=== PATIENT | female | born 1955 | race Caucasian/White ===

== ENCOUNTER 2016-11-02 12:18 | Inpatient (IN) | payer BC ==
[~2016-11-02] VITALS: Ht 160 cm; Wt 101.4 kg
--- NOTE | 2016-11-02 12:42 | EKG ---
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
[2016-11-02 13:06] LABS: BASO # 0.1 x10^3/uL (0.0-0.2); BASO % 2 % (0-3); EOS % 4 % (0-3); HEMATOCRIT 39.5 % (36.0-47.0); LYMPH # 1.7 x10^3/uL (1.0-4.8); LYMPH % 20 % (24-48); MEAN CORPUSCULAR HEMOGLOBIN 24 pg (25-35); MEAN CORPUSCULAR HGB CONC 33 g/dL (31-37); MEAN CORPUSCULAR VOLUME 73 fL (79-100); MONO % 6 % (0-9); NEUT % 68 % (31-73); PLATELET COUNT 299 x10^3/uL (140-400); RED CELL DISTRIBUTION WIDTH 15.8 % (11.5-14.5); WHITE BLOOD COUNT 8.5 x10^3/uL (4.0-11.0)
[2016-11-02 13:12] LABS: CALCIUM 9.6 mg/dL (8.5-10.1); CREATININE 0.9 mg/dL (0.6-1.0); GFR 63.2; POTASSIUM 3.8 mmol/L (3.5-5.1)
[2016-11-02] MEDS ORDERED: ONDANSETRON PF 4 MG/2 ML VIAL. IV ONE (13:15)
[2016-11-02] MEDS ORDERED: fentaNYL PF VIAL 100 MCG/2 ML VIAL IV ONE (13:15)
[2016-11-02 13:18] LABS: ALBUMIN 3.6 g/dL (3.4-5.0); ALBUMIN/GLOBULIN RATIO 0.8 (1.0-1.7); TOTAL BILIRUBIN 0.3 mg/dL (0.2-1.0); TOTAL PROTEIN 7.9 g/dL (6.4-8.2)
[2016-11-02 13:39] LABS: BILIRUBIN,URINE NEGATIVE (NEG); GLUCOSE,URINE NEGATIVE (NEG); NITRITE,URINE POSITIVE (NEG); PROTEIN,URINE NEGATIVE (NEG-TRACE); UROBILINOGEN,URINE 0.2 mg/dL (0.2 mg/dL)
[2016-11-02 13:52] LABS: BACTERIA,URINE MANY /HPF (0-FEW); RBC,URINE 0 /HPF (0-2); SQUAMOUS EPITHELIAL CELL,UR FEW /LPF; WBC,URINE 20-40 /HPF (0-4)
--- NOTE | 2016-11-02 16:24 | RAD ---
Indication right upper quadrant abdominal pain. Grayscale imaging was performed. Examination was targeted to the right upper quadrant. A focal mass lesion is not seen in the visualized liver. There is increased attenuation of the ultrasound beam by the liver compatible with fatty infiltration. The gallbladder appears unremarkable. The common bile duct diameter of approximately 3 mm is normal. The right kidney appears unremarkable. The pancreas is poorly visualized and largely obscured by gas. IMPRESSION: Normal gallbladder. Fatty infiltration of the liver. Midline structures largely obscured
--- NOTE | 2016-11-02 17:56 | PHYS DOC ---
Past Medical History Past Medical History: Diabetes-Type II, Fibromyalgia, GERD, Hypertension, Other Additional Past Medical Histor: FATTY TUMORS Past Surgical History: Hysterectomy, Other Additional Past Surgical Histo: FATTY TUMOR REMOVAL Alcohol Use: None Drug Use: None Adult General Chief Complaint Chief Complaint: GI PROBLEM HPI HPI Patient is a 61 year old female who presents with epigastric pain dating to right shoulder and right lateral neck. Abdominal pain is now resolved. Patient describes back pain as sharp. It is not reproducible worse with position change , movement or deep breathing. Pain is described as moderate. She denies recent fall or strain injury. Denies headache, blurred vision, nausea, vomiting and shortness of breath. Pain is nonexertional. Denies increased leg pain or swelling. No history of DVT or PE. No prior abdominal surgeries. No other acute symptoms or complaints. Review of Systems Review of Systems Review symptoms as per history of present illness. All other review symptoms are negative. Current Medications Current Medications Current Medications Medications (Trade) Dose Ordered Sig/Janny Start Time Stop Time Status Last Admin Dose Admin Fentanyl Citrate (Fentanyl 2ml Vial) 50 mcg 1X ONCE 11/02/16 13:15 11/02/16 13:16 DC Iohexol (Omnipaque 300 Mg/ml) 75 ml 1X ONCE 11/02/16 18:00 11/02/16 18:01 UNV Ondansetron HCl (Zofran) 4 mg 1X ONCE 11/02/16 13:15 11/02/16 13:16 DC Allergies Allergies Allergies Coded Allergies Type Severity Reaction Last Updated Verified Sulfa (Sulfonamide Antibiotics) Allergy Intermediate MOUTH SORES 11/02/16 Yes Physical Exam Physical Exam Constitutional: Well developed, well nourished, no acute distress, non-toxic appearance. [] HENT: Normocephalic, atraumatic, bilateral external ears normal, oropharynx moist, no oral exudates, nose normal. [] Eyes: PERRLA, EOMI, conjunctiva normal, no discharge. [] Neck: Normal range of motion, no tenderness, supple, no stridor. [] Cardiovascular:Heart rate regular rhythm, no murmur [] Lungs & Thorax: Bilateral breath sounds clear to auscultation negative Homans signs.[] Abdomen: Bowel sounds normal, soft, no gastric tenderness.. [] Skin: Warm, dry, no erythema, no rash. [] Back: No tenderness, no CVA tenderness. [] Extremities: No tenderness, no cyanosis, no clubbing, ROM intact, no edema. [] Neurologic: Alert and oriented X 3, normal motor function, normal sensory function, no focal deficits noted. [] Psychologic: Affect normal, judgement normal, mood normal. [] Current Patient Data Vital Signs Vital Signs Date Time Temp Pulse Resp B/P (MAP) Pulse Ox O2 Delivery O2 Flow Rate FiO2 11/02/16 16:18 60 18 133/63 (86) 97 Room Air 11/02/16 12:20 98.0 98.0 Lab Values Laboratory Tests Test 11/02/16 12:54 11/02/16 13:35 White Blood Count 8.5 x10^3/uL (4.0-11.0) Red Blood Count 5.40 x10^6/uL (3.50-5.40) Hemoglobin 13.0 g/dL (12.0-15.5) Hematocrit 39.5 % (36.0-47.0) Mean Corpuscular Volume 73 fL (79-100) L Mean Corpuscular Hemoglobin 24 pg (25-35) L Mean Corpuscular Hemoglobin Concent 33 g/dL (31-37) Red Cell Distribution Width 15.8 % (11.5-14.5) H Platelet Count 299 x10^3/uL (140-400) Neutrophils (%) (Auto) 68 % (31-73) Lymphocytes (%) (Auto) 20 % (24-48) L Monocytes (%) (Auto) 6 % (0-9) Eosinophils (%) (Auto) 4 % (0-3) H Basophils (%) (Auto) 2 % (0-3) Neutrophils # (Auto) 5.8 x10^3uL (1.8-7.7) Lymphocytes # (Auto) 1.7 x10^3/uL (1.0-4.8) Monocytes # (Auto) 0.5 x10^3/uL (0.0-1.1) Eosinophils # (Auto) 0.4 x10^3/uL (0.0-0.7) Basophils # (Auto) 0.1 x10^3/uL (0.0-0.2) D-Dimer (Padmini) 0.53 ug/mlFEU (0.00-0.50) H Sodium Level 140 mmol/L (136-145) Potassium Level 3.8 mmol/L (3.5-5.1) Chloride Level 102 mmol/L (98-107) Carbon Dioxide Level 30 mmol/L (21-32) Anion Gap 8 (6-14) Blood Urea Nitrogen 14 mg/dL (7-20) Creatinine 0.9 mg/dL (0.6-1.0) Estimated GFR (Cockcroft-Gault) 63.2 BUN/Creatinine Ratio 16 (6-20) Glucose Level 134 mg/dL (70-99) H Calcium Level 9.6 mg/dL (8.5-10.1) Total Bilirubin 0.3 mg/dL (0.2-1.0) Aspartate Amino Transferase (AST) 17 U/L (15-37) Alanine Aminotransferase (ALT) 25 U/L (14-59) Alkaline Phosphatase 80 U/L (46-116) Troponin I Quantitative < 0.017 ng/mL (0.000-0.055) Total Protein 7.9 g/dL (6.4-8.2) Albumin 3.6 g/dL (3.4-5.0) Albumin/Globulin Ratio 0.8 (1.0-1.7) L Lipase 203 U/L (73-393) Urine Collection Type Unknown Urine Color Yellow Urine Clarity Clear Urine pH 7.0 Urine Specific [place] <=1.005 Urine Protein Negative mg/dL (NEG-TRACE) Urine Glucose (UA) Negative mg/dL (NEG) Urine Ketones (Stick) Negative mg/dL (NEG) Urine Blood Negative (NEG) Urine Nitrite Positive (NEG) Urine Bilirubin Negative (NEG) Urine Urobilinogen Dipstick 0.2 mg/dL (0.2 mg/dL) Urine Leukocyte Esterase Small (NEG) Urine RBC 0 /HPF (0-2) Urine WBC 20-40 /HPF (0-4) Urine Squamous Epithelial Cells Few /LPF Urine Bacteria Many /HPF (0-FEW) Laboratory Tests 11/02/16 12:54 Laboratory Tests 11/02/16 12:54 EKG EKG [EKG: Normal sinus rhythm, room 70, no acute ST-T wave changes. QTC 413.] Radiology/Procedures Radiology/Procedures [EKG: Normal sinus rhythm, no acute ST-T wave changes.] Course & Med Decision Making Course & Med Decision Making Pertinent Labs and Imaging studies reviewed. (See chart for details) [Atypical chest pain. ED evaluation unremarkable. Pain resolved in the ED. Patient's d-dimer is nominally elevated. CT chest pending. Will admit to the hospital service for further evaluation and treatment.] Dragon Disclaimer Dragon Disclaimer This electronic medical record was generated, in whole or in part, using a voice recognition dictation system. Departure Departure Impression: Primary Impression: Chest pain Disposition: ADMITTED INPATIENT Condition: GOOD Referrals: ELIZABETH PHILIPPE (PCP) TIFFANY WETZEL DO Nov 02, 2016 17:56
[2016-11-02] MEDS ORDERED: CONTRAST GIVEN MC PRN (18:00)
[2016-11-02] MEDS ORDERED: IOHEXOL 300 MG/ML 75 ML VIAL IV ONE (18:00)
[2016-11-02] MEDS ORDERED: ONDANSETRON PF 4 MG/2 ML VIAL. IV PRN (18:00)
[2016-11-02] MEDS ORDERED: IOHEXOL 300 MG/ML 75 ML VIAL ONE (18:19)
--- NOTE | 2016-11-02 18:42 | RAD ---
Chest CTA History: Chest pain, back pain Technique: After bolus of intravenous contrast, CT imaging was performed of the chest. Multiplanar reconstruction images to include MIP reconstruction images are submitted. Exposure: One or more of the following individualized dose reduction techniques were utilized for this examination: 1. Automated exposure control 2. Adjustment of the mA and/or kV according to patient size 3. Use of iterative reconstruction technique. Contrast: 75 cc Omnipaque 300 Comparison: Chest CT December 13, 2010 Findings: [ No pulmonary embolism is identified. Thoracic aortic caliber is within limits without intraluminal flap. There are a few subcentimeter mediastinal and hilar nodes. Largest pretracheal node measures 0.9 cm short axis dimension, not considered significantly enlarged based on axial imaging criteria. There is no abnormal pericardial or pleural fluid, lobar infiltrate, pneumothorax. Major airways are patent. There is some centrilobular emphysema. Mild of linear atelectasis or fibrotic change of the lingula. There is multilevel thoracic spondylosis. Impression: 1. No pulmonary embolism is identified. 2. There is some centrilobular emphysema. Electronically signed by: Osbaldo Rose MD (11/02/2016 6:39 PM) [facility]
[2016-11-02 19:15] VITALS: BP 139/50
[2016-11-02 19:39] VITALS: BP 139/50
[2016-11-02] MEDS ORDERED: diphenhydrAMINE 50 MG/ML VIAL IVP ONE (20:30)
[2016-11-02] MEDS ORDERED: methylPREDNISolone SOD SUCC PF 40 MG/ML VIAL. IV ONE (20:30)
[2016-11-02] MEDS ORDERED: METF500T4 PO (21:12)
[2016-11-02] MEDS ORDERED: DULO60CA6 PO (21:12)
[2016-11-02] MEDS ORDERED: CLON1TAB3 PO (21:12)
[2016-11-02] MEDS ORDERED: HYDRODIURIL PO (21:12)
[2016-11-02] MEDS ORDERED: MECLAZINE PO (21:12)
[2016-11-02] MEDS ORDERED: TRAZ50TA15 PO (21:12)
[2016-11-02] MEDS ORDERED: CRESTOR20 MG PO (21:12)
[2016-11-02] MEDS ORDERED: ATEN50TA PO (21:12)
[2016-11-02] MEDS ORDERED: Hyzaar PO (21:12)
[2016-11-02] MEDS ORDERED: OMEP20CA9 PO (21:12)
--- NOTE | 2016-11-02 21:33 | PDOC1 ---
History and Physical Date of Admission Date of Admission DATE: 11/02/16 TIME: 21:32 Identification/Chief Complaint Chief Complaint chest pain to neck Problems: Source Source: Chart review, Patient History of Present Illness History of Present Illness Ms. Davis, is a 61 admit with acute epigastric pain then right chest pain to right neck, to right ear. 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) GI: GERD Heme/Onc: No pertinent hx Hepatobiliary: No pertinent hx Musculoskeletal: low back pain ENT: No pertinent hx Renal/: No pertinent hx Endocrine: No pertinent hx Family History Family History: No Significant Social History Smoke: No ALCOHOL: none Drugs: None Current Medications Current Medications Current Medications Fentanyl Citrate (Fentanyl 2ml Vial) 50 mcg 1X ONCE IV ; Start 11/02/16 at 13: 15; Stop 11/02/16 at 13:16; Status DC Ondansetron HCl (Zofran) 4 mg 1X ONCE IV ; Start 11/02/16 at 13:15; Stop at 13:16; Status DC Iohexol (Omnipaque 300 Mg/ml) 75 ml 1X ONCE IV Last administered on 11/02/16t 18:12; Start 11/02/16 at 18:00; Stop 11/02/16 at 18:01; Status DC Ondansetron HCl (Zofran) 4 mg PRN Q8HRS PRN IV NAUSEA/VOMITING; Start 11/02/16 at 18:00; Stop 11/03/16 at 17:59 Info (Do NOT chart on this entry -- for MONITORING) 1 each PRN DAILY PRN MC SEE COMMENTS; Start 11/02/16 at 18:00; Stop 11/04/16 at 17:59 Iohexol (Omnipaque 300 Mg/ml) 75 ml STK-MED ONCE .ROUTE ; Start 11/02/16 at 18: 19; Stop 11/02/16 at 18:20; Status DC Methylprednisolone Sodium Succinate (SOLU-Medrol 40MG VIAL) 40 mg 1X ONCE IV Last administered on 11/02/16t 20:46; Start 11/02/16 at 20:30; Stop 11/02/16 at 20:31; Status DC Diphenhydramine HCl (Benadryl) 50 mg 1X ONCE IVP Last administered on 20:46; Start 11/02/16 at 20:30; Stop 11/02/16 at 20:31; Status DC Ceftriaxone Sodium 1 gm/ Sodium Chloride 50 ml @ 100 mls/hr Q24H IV Last administered on 11/02/16 20:46; Start 11/02/16 at 21:00 Active Scripts Active Reported [Meclazine] 25 Mg PO PRN Trazodone Hcl 50 Mg Tablet 1 Tab PO QHS PRN Metformin Hcl 500 Mg Tablet 500 Mg PO DAILY Crestor (Rosuvastatin Calcium) 20 Mg Tablet 1 Tab PO DAILY Cymbalta (Duloxetine Hcl) 60 Mg Capsule.dr 1 Cap PO DAILY Omeprazole 20 Mg Capsule.dr 1 Cap PO DAILY Atenolol 50 Mg Tablet 1 Tab PO DAILY [Hydrodiuril] 50 Mg PO DAILY Clonazepam 1 Mg Tablet 1 Tab PO QHS [Hyzaar] PO Allergies Allergies: Coded Allergies: Sulfa (Sulfonamide Antibiotics) (Verified Allergy, Intermediate, MOUTH SORES, 11/02/16) iohexol (Verified Allergy, Intermediate, Hives, 11/02/16) hives, reddened areas, itching ROS General: No: Chills, Night Sweats, Fatigue, Malaise, Appetite, Other PSYCHOLOGICAL ROS: No: Anxiety, Behavioral Disorder, Concentration difficultie , Decreased libido, Depression, Disorientation, Hallucinations, Hostility, Irritablity, Memory difficulties, Mood Swings, Obsessive thoughts, Physical abuse, Sexual abuse, Sleep disturbances, Suicidal ideation, Other Eyes: No Blurry vision, No Decreased vision, No Double vision, No Dry eyes, No Excessive tearing, No Eye Pain, No Itchy Eyes, No Loss of vision, No Photophobia , No Scotomata, No Uses contacts, No Uses glasses, No Other HEENT: No: Heacaches, Visual Changes, Hearing change, Nasal congestion, Nasal discharge, Oral lesions, Sinus pain, Sore Throat, Epistaxis, Sneezing, Snoring, Tinnitus, Vertigo, Vocal changes, Other Respiratory: No: Cough, Hemoptysis, Orthopnea, Pleuritic Pain, Shortness of breath, SOB with excertion, Sputum Changes, Stridor, Tachypnea, Wheezing, Other Cardiovascular: No Chest Pain, No Palpitations, No Orthopnea, No Paroxysmal Noc. Dyspnea, No Edema, No Lt Headedness, No Other Gastrointestinal: Yes Nausea, No Vomiting, No Abdominal Pain, No Diarrhea, No Constipation, No Melena, No Hematochezia, No Other Genitourinary: No Dysuria, No Frequency, No Incontinence, No Hematuria, No Retention, No Discharge, No Urgency, No Pain, No Flank Pain, No Other, No , No , No , No , No , No , No Musculoskeletal: Yes Muscle Pain, Yes Pain In: (chest, neck ), No Gait Disturbance, No Joint Pain, No Joint Stiffness, No Joint Swelling, No Muscular Weakness, No Swelling In:, No Other Neurological: No Behavorial Changes, No Bowel/Bladder ControlChng, No Confusion , No Dizziness, No Gait Disturbance, No Headaches, No Impaired Coord/balance, No Memory Loss, No Numbness/Tingling, No Seizures, No Speech Problems, No Tremors, No Visual Changes, No Weakness, No Other Skin: Yes Dry Skin, No Eczema, No Hair Changes, No Lumps, No Mole Changes, No Mottling, No Nail Changes, No Pruritus, No Rash, No Skin Lesion Changes, No Other, No Acne Physical Exam General: Alert, Cooperative, No acute distress HEENT: Atraumatic, PERRLA, EOMI, Mucous membr. moist/pink Lungs: Normal air movement Heart: no gallops, no murmurs Abdomen: Normal bowel sounds, Soft (obese) Rectal Exam: not examined Extremities: No cyanosis, No edema, Normal pulses Skin: No breakdown, No significant lesion Neuro: Normal gait, Normal speech, Strength at 5/5 X4 ext, Sensation intact Psych/Mental Status: Mood NL Vitals Vitals Vital Signs Date Time Temp Pulse Resp B/P (MAP) Pulse Ox O2 Delivery O2 Flow Rate FiO2 11/02/16 19:39 97.7 61 16 139/50 (79) 96 Room Air 97.7 Labs Labs Laboratory Tests Test 11/02/16 12:54 11/02/16 13:35 11/02/16 20:48 White Blood Count 8.5 x10^3/uL (4.0-11.0) Red Blood Count 5.40 x10^6/uL (3.50-5.40) Hemoglobin 13.0 g/dL (12.0-15.5) Hematocrit 39.5 % (36.0-47.0) Mean Corpuscular Volume 73 fL (79-100) Mean Corpuscular Hemoglobin 24 pg (25-35) Mean Corpuscular Hemoglobin Concent 33 g/dL (31-37) Red Cell Distribution Width 15.8 % (11.5-14.5) Platelet Count 299 x10^3/uL (140-400) Neutrophils (%) (Auto) 68 % (31-73) Lymphocytes (%) (Auto) 20 % (24-48) Monocytes (%) (Auto) 6 % (0-9) Eosinophils (%) (Auto) 4 % (0-3) Basophils (%) (Auto) 2 % (0-3) Neutrophils # (Auto) 5.8 x10^3uL (1.8-7.7) Lymphocytes # (Auto) 1.7 x10^3/uL (1.0-4.8) Monocytes # (Auto) 0.5 x10^3/uL (0.0-1.1) Eosinophils # (Auto) 0.4 x10^3/uL (0.0-0.7) Basophils # (Auto) 0.1 x10^3/uL (0.0-0.2) D-Dimer (Padmini) 0.53 ug/mlFEU (0.00-0.50) Sodium Level 140 mmol/L (136-145) Potassium Level 3.8 mmol/L (3.5-5.1) Chloride Level 102 mmol/L (98-107) Carbon Dioxide Level 30 mmol/L (21-32) Anion Gap 8 (6-14) Blood Urea Nitrogen 14 mg/dL (7-20) Creatinine 0.9 mg/dL (0.6-1.0) Estimated GFR (Cockcroft-Gault) 63.2 BUN/Creatinine Ratio 16 (6-20) Glucose Level 134 mg/dL (70-99) Calcium Level 9.6 mg/dL (8.5-10.1) Total Bilirubin 0.3 mg/dL (0.2-1.0) Aspartate Amino Transf (AST/SGOT) 17 U/L (15-37) Alanine Aminotransferase (ALT/SGPT) 25 U/L (14-59) Alkaline Phosphatase 80 U/L (46-116) Troponin I Quantitative < 0.017 ng/mL (0.000-0.055) Total Protein 7.9 g/dL (6.4-8.2) Albumin 3.6 g/dL (3.4-5.0) Albumin/Globulin Ratio 0.8 (1.0-1.7) Lipase 203 U/L (73-393) Urine Collection Type Unknown Urine Color Yellow Urine Clarity Clear Urine pH 7.0 Urine Specific [place] <=1.005 Urine Protein Negative mg/dL (NEG-TRACE) Urine Glucose (UA) Negative mg/dL (NEG) Urine Ketones (Stick) Negative mg/dL (NEG) Urine Blood Negative (NEG) Urine Nitrite Positive (NEG) Urine Bilirubin Negative (NEG) Urine Urobilinogen Dipstick 0.2 mg/dL (0.2 mg/dL) Urine Leukocyte Esterase Small (NEG) Urine RBC 0 /HPF (0-2) Urine WBC 20-40 /HPF (0-4) Urine Squamous Epithelial Cells Few /LPF Urine Bacteria Many /HPF (0-FEW) Glucose (Fingerstick) 125 mg/dL (70-99) Laboratory Tests Test 11/02/16 12:54 11/02/16 13:35 11/02/16 20:48 White Blood Count 8.5 x10^3/uL (4.0-11.0) Red Blood Count 5.40 x10^6/uL (3.50-5.40) Hemoglobin 13.0 g/dL (12.0-15.5) Hematocrit 39.5 % (36.0-47.0) Mean Corpuscular Volume 73 fL (79-100) Mean Corpuscular Hemoglobin 24 pg (25-35) Mean Corpuscular Hemoglobin Concent 33 g/dL (31-37) Red Cell Distribution Width 15.8 % (11.5-14.5) Platelet Count 299 x10^3/uL (140-400) Neutrophils (%) (Auto) 68 % (31-73) Lymphocytes (%) (Auto) 20 % (24-48) Monocytes (%) (Auto) 6 % (0-9) Eosinophils (%) (Auto) 4 % (0-3) Basophils (%) (Auto) 2 % (0-3) Neutrophils # (Auto) 5.8 x10^3uL (1.8-7.7) Lymphocytes # (Auto) 1.7 x10^3/uL (1.0-4.8) Monocytes # (Auto) 0.5 x10^3/uL (0.0-1.1) Eosinophils # (Auto) 0.4 x10^3/uL (0.0-0.7) Basophils # (Auto) 0.1 x10^3/uL (0.0-0.2) D-Dimer (Padmini) 0.53 ug/mlFEU (0.00-0.50) Sodium Level 140 mmol/L (136-145) Potassium Level 3.8 mmol/L (3.5-5.1) Chloride Level 102 mmol/L (98-107) Carbon Dioxide Level 30 mmol/L (21-32) Anion Gap 8 (6-14) Blood Urea Nitrogen 14 mg/dL (7-20) Creatinine 0.9 mg/dL (0.6-1.0) Estimated GFR (Cockcroft-Gault) 63.2 BUN/Creatinine Ratio 16 (6-20) Glucose Level 134 mg/dL (70-99) Calcium Level 9.6 mg/dL (8.5-10.1) Total Bilirubin 0.3 mg/dL (0.2-1.0) Aspartate Amino Transf (AST/SGOT) 17 U/L (15-37) Alanine Aminotransferase (ALT/SGPT) 25 U/L (14-59) Alkaline Phosphatase 80 U/L (46-116) Troponin I Quantitative < 0.017 ng/mL (0.000-0.055) Total Protein 7.9 g/dL (6.4-8.2) Albumin 3.6 g/dL (3.4-5.0) Albumin/Globulin Ratio 0.8 (1.0-1.7) Lipase 203 U/L (73-393) Urine Collection Type Unknown Urine Color Yellow Urine Clarity Clear Urine pH 7.0 Urine Specific [place] <=1.005 Urine Protein Negative mg/dL (NEG-TRACE) Urine Glucose (UA) Negative mg/dL (NEG) Urine Ketones (Stick) Negative mg/dL (NEG) Urine Blood Negative (NEG) Urine Nitrite Positive (NEG) Urine Bilirubin Negative (NEG) Urine Urobilinogen Dipstick 0.2 mg/dL (0.2 mg/dL) Urine Leukocyte Esterase Small (NEG) Urine RBC 0 /HPF (0-2) Urine WBC 20-40 /HPF (0-4) Urine Squamous Epithelial Cells Few /LPF Urine Bacteria Many /HPF (0-FEW) Glucose (Fingerstick) 125 mg/dL (70-99) VTE Prophylaxis Ordered VTE Prophylaxis Devices: No VTE Pharmacological Prophylaxi: Yes Assessment/Plan Assessment/Plan chest pain, angina, pain from chest to right neck to right ear Hx GERD with chest pain, cont PPI obesity, BMI 39 Dm2, tobaccoism microcytosis without anemia, check for iron def. rash, poss contrast allergy, solumedrol and benadryl given admit for r/o ACS NICHELLE BRADFORD MD Nov 02, 2016 21:33
[2016-11-02] MEDS ORDERED: traZODone 50 MG TABLET. PO PRN (21:45)
[2016-11-02] MEDS: clonazePAM 1 MG TABLET PO SCH (22:00)
[2016-11-02 23:02] VITALS: BP 123/53
[2016-11-03 02:57] VITALS: BP 132/65
[2016-11-03 05:30] LABS: BASO # 0.1 x10^3/uL (0.0-0.2); BASO % 1 % (0-3); EOS % 2 % (0-3); HEMATOCRIT 38.3 % (36.0-47.0); HEMOGLOBIN 12.5 g/dL (12.0-15.5); LYMPH % 19 % (24-48); MEAN CORPUSCULAR HEMOGLOBIN 24 pg (25-35); MEAN CORPUSCULAR HGB CONC 33 g/dL (31-37); MEAN CORPUSCULAR VOLUME 74 fL (79-100); MONO % 5 % (0-9); NEUT % 72 % (31-73); PLATELET COUNT 288 x10^3/uL (140-400); RED BLOOD COUNT 5.18 x10^6/uL (3.50-5.40); RED CELL DISTRIBUTION WIDTH 16.2 % (11.5-14.5); WHITE BLOOD COUNT 10.5 x10^3/uL (4.0-11.0)
[2016-11-03 07:00] VITALS: BP 139/47
[2016-11-03 08:29] LABS: % SAT IRON 7 % (15-34); IRON,SERUM 27 ug/dL (50-170)
[2016-11-03] MEDS: hydroCHLOROthiazide 25 MG TABLET PO SCH ×2 (09:00→11:53)
[2016-11-03] MEDS ORDERED: REGADENOSON 0.4 MG/5 ML DISP.SYRIN. IV ONE ×2 (10:45→10:48)
[2016-11-03] MEDS: DULoxetine HCL 30 MG CAPSULE.DR PO SCH (11:51)
[2016-11-03] MEDS: PANTOPRAZOLE 40 MG TABLET.DR. PO SCH (11:51)
[2016-11-03] MEDS: ATENOLOL 50 MG TABLET. PO SCH (11:54)
[2016-11-03 12:10] LABS: NEG OBC FOB NEG; POS OBC FOB POS
[2016-11-03] MEDS ORDERED: DEXTROSE 50% 25 GM / 50ML DISP.SYRIN. IV PRN (12:30)
[2016-11-03] MEDS ORDERED: FERR-26 PO (13:20)
[2016-11-03] MEDS ORDERED: POLY17PO29 PO (13:20)
[2016-11-03] MEDS ORDERED: CIPR250T30 PO (13:21)
[2016-11-03] MEDS: LOSARTAN POTASSIUM 50 MG TABLET. PO SCH (13:32)
[2016-11-03] MEDS: hydroCHLOROthiazide 12.5 MG CAPSULE PO SCH (13:33)
[2016-11-03 15:00] VITALS: BP 133/58
--- NOTE | 2016-11-03 16:30 | PDOC2 ---
CONSULT Date of Consult Date of Consult DATE: 11/03/16 TIME: 16:26 Reason for Consult Reason for Consult: Chest pain Referring Physician Referring Physician: Dr. Sauceda Identification/Chief Complaint Chief Complaint Chest pain and epigastric pain Problems: History of Present Illness Reason for Visit: His patient is a very pleasant 61-year-old lady that is supple for her ideal body weight and has a known history of hypertension and a family history of coronary artery disease. The patient developed some epigastric pain that gradually localized more in to the chest radiating to the neck. This was very severe an 8 out of 10 and took some time to be relieved. Due to this the patient was brought to the emergency room where she was seen and evaluated and he was decided to admit her for further workup and treatment. At the time that I saw her the patient was resting comfortably and denies having any chest pains. So far the patient's troponins have been negative. 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) GI: GERD Heme/Onc: No pertinent hx Hepatobiliary: No pertinent hx Musculoskeletal: low back pain ENT: No pertinent hx Renal/: No pertinent hx Endocrine: No pertinent hx Family History Family History: No Significant Social History No ALCOHOL: none Drugs: None Current Medications Current Medications Current Medications Fentanyl Citrate (Fentanyl 2ml Vial) 50 mcg 1X ONCE IV ; Start 11/02/16 at 13: 15; Stop 11/02/16 at 13:16; Status DC Ondansetron HCl (Zofran) 4 mg 1X ONCE IV ; Start 11/02/16 at 13:15; Stop at 13:16; Status DC Iohexol (Omnipaque 300 Mg/ml) 75 ml 1X ONCE IV Last administered on 11/02/16t 18:12; Start 11/02/16 at 18:00; Stop 11/02/16 at 18:01; Status DC Ondansetron HCl (Zofran) 4 mg PRN Q8HRS PRN IV NAUSEA/VOMITING; Start 11/02/16 at 18:00; Stop 11/03/16 at 17:59 Info (Do NOT chart on this entry -- for MONITORING) 1 each PRN DAILY PRN MC SEE COMMENTS; Start 11/02/16 at 18:00; Stop 11/04/16 at 17:59 Iohexol (Omnipaque 300 Mg/ml) 75 ml STK-MED ONCE .ROUTE ; Start 11/02/16 at 18: 19; Stop 11/02/16 at 18:20; Status DC Methylprednisolone Sodium Succinate (SOLU-Medrol 40MG VIAL) 40 mg 1X ONCE IV Last administered on 11/02/16 20:46; Start 11/02/16 at 20:30; Stop 11/02/16 at 20:31; Status DC Diphenhydramine HCl (Benadryl) 50 mg 1X ONCE IVP Last administered on 20:46; Start 11/02/16 at 20:30; Stop 11/02/16 at 20:31; Status DC Ceftriaxone Sodium 1 gm/ Sodium Chloride 50 ml @ 100 mls/hr Q24H IV Last administered on 11/02/16 20:46; Start 11/02/16 at 21:00 Atenolol (Tenormin) 50 mg DAILY PO Last administered on 11/03/16 11:54; Start 11/03/16 at 09:00 Clonazepam (KlonoPIN) 1 mg QHS PO ; Start 11/02/16 at 22:00 Metformin HCl (Glucophage) 500 mg DAILY08 PO ; Start 11/05/16 at 08:00; Stop at 08:00; Status DC Trazodone HCl (Desyrel) 50 mg PRN QHS PRN PO INSOMNIA; Start 11/02/16 at 21:45 Duloxetine HCl (Cymbalta) 60 mg DAILY PO Last administered on 11/03/16 11:51; Start 11/03/16 at 09:00 Pantoprazole Sodium (Protonix) 40 mg DAILYAC PO Last administered on 11/03/16 11:51; Start 11/03/16 at 07:30 Atorvastatin Calcium (Lipitor) 80 mg HS PO ; Start 11/03/16 at 21:00 Hydrochlorothiazide (Hydrodiuril) 50 mg DAILY PO ; Start 11/03/16 at 09:00; Stop 11/03/16 at 12:20; Status DC Metformin HCl (Glucophage) 500 mg BIDWMEALS PO ; Start 11/05/16 at 08:00 Regadenoson (Lexiscan) 0.4 mg 1X ONCE IV Last administered on 11/03/16 11:09 ; Start 11/03/16 at 10:45; Stop 11/03/16 at 10:46; Status DC Regadenoson (Lexiscan) 0.4 mg STK-MED ONCE IV ; Start 11/03/16 at 10:48; Stop at 10:49; Status DC Losartan Potassium (Cozaar) 50 mg DAILY PO Last administered on 11/03/16 13:32 ; Start 11/03/16 at 13:00 Hydrochlorothiazide (Microzide) 12.5 mg DAILY PO Last administered on 13:33; Start 11/03/16 at 13:00 Insulin Aspart (NovoLOG) 0-5 UNITS TIDWMEALS SQ ; Start 11/03/16 at 17:00 Dextrose (Dextrose 50%-Water Syringe) 12.5 gm PRN Q15MIN PRN IV SEE COMMENTS; Start 11/03/16 at 12:30 Active Scripts Active Reported [Meclazine] 25 Mg PO PRN Trazodone Hcl 50 Mg Tablet 1 Tab PO QHS PRN Metformin Hcl 500 Mg Tablet 500 Mg PO BID Crestor (Rosuvastatin Calcium) 20 Mg Tablet 1 Tab PO DAILY Cymbalta (Duloxetine Hcl) 60 Mg Capsule.dr 1 Cap PO DAILY Omeprazole 20 Mg Capsule.dr 1 Cap PO DAILY Atenolol 50 Mg Tablet 1 Tab PO DAILY Clonazepam 1 Mg Tablet 1 Tab PO QHS [Hyzaar] 50/12.5 1 Tab PO DAILY Allergies Allergies: Coded Allergies: Sulfa (Sulfonamide Antibiotics) (Verified Allergy, Intermediate, MOUTH SORES, 11/02/16) iohexol (Verified Allergy, Intermediate, Hives, 11/02/16) hives, reddened areas, itching Physical Exam General: Alert, Oriented X3, Cooperative HEENT: Atraumatic, PERRLA Lungs: Clear to auscultation Heart: Regular rate, Normal S1, Normal S2, Other (tachycardic rate 100, no chest wall tenderness) Abdomen: Normal bowel sounds, Soft Extremities: No edema Vitals VITALS Vital Signs Date Time Temp Pulse Resp B/P (MAP) Pulse Ox O2 Delivery O2 Flow Rate FiO2 11/03/16 15:00 97.9 92 16 133/58 (83) 95 Room Air 97.9 Labs Labs Laboratory Tests Test 11/02/16 12:54 11/02/16 13:35 11/02/16 20:48 11/02/16 23:30 White Blood Count 8.5 x10^3/uL (4.0-11.0) Red Blood Count 5.40 x10^6/uL (3.50-5.40) Hemoglobin 13.0 g/dL (12.0-15.5) Hematocrit 39.5 % (36.0-47.0) Mean Corpuscular Volume 73 fL (79-100) Mean Corpuscular Hemoglobin 24 pg (25-35) Mean Corpuscular Hemoglobin Concent 33 g/dL (31-37) Red Cell Distribution Width 15.8 % (11.5-14.5) Platelet Count 299 x10^3/uL (140-400) Neutrophils (%) (Auto) 68 % (31-73) Lymphocytes (%) (Auto) 20 % (24-48) Monocytes (%) (Auto) 6 % (0-9) Eosinophils (%) (Auto) 4 % (0-3) Basophils (%) (Auto) 2 % (0-3) Neutrophils # (Auto) 5.8 x10^3uL (1.8-7.7) Lymphocytes # (Auto) 1.7 x10^3/uL (1.0-4.8) Monocytes # (Auto) 0.5 x10^3/uL (0.0-1.1) Eosinophils # (Auto) 0.4 x10^3/uL (0.0-0.7) Basophils # (Auto) 0.1 x10^3/uL (0.0-0.2) D-Dimer (Padmini) 0.53 ug/mlFEU (0.00-0.50) Sodium Level 140 mmol/L (136-145) Potassium Level 3.8 mmol/L (3.5-5.1) Chloride Level 102 mmol/L (98-107) Carbon Dioxide Level 30 mmol/L (21-32) Anion Gap 8 (6-14) Blood Urea Nitrogen 14 mg/dL (7-20) Creatinine 0.9 mg/dL (0.6-1.0) Estimated GFR (Cockcroft-Gault) 63.2 BUN/Creatinine Ratio 16 (6-20) Glucose Level 134 mg/dL (70-99) Calcium Level 9.6 mg/dL (8.5-10.1) Total Bilirubin 0.3 mg/dL (0.2-1.0) Aspartate Amino Transf (AST/SGOT) 17 U/L (15-37) Alanine Aminotransferase (ALT/SGPT) 25 U/L (14-59) Alkaline Phosphatase 80 U/L (46-116) Troponin I Quantitative < 0.017 ng/mL (0.000-0.055) < 0.017 ng/mL (0.000-0.055) Total Protein 7.9 g/dL (6.4-8.2) Albumin 3.6 g/dL (3.4-5.0) Albumin/Globulin Ratio 0.8 (1.0-1.7) Lipase 203 U/L (73-393) Urine Collection Type Unknown Urine Color Yellow Urine Clarity Clear Urine pH 7.0 Urine Specific [place] <=1.005 Urine Protein Negative mg/dL (NEG-TRACE) Urine Glucose (UA) Negative mg/dL (NEG) Urine Ketones (Stick) Negative mg/dL (NEG) Urine Blood Negative (NEG) Urine Nitrite Positive (NEG) Urine Bilirubin Negative (NEG) Urine Urobilinogen Dipstick 0.2 mg/dL (0.2 mg/dL) Urine Leukocyte Esterase Small (NEG) Urine RBC 0 /HPF (0-2) Urine WBC 20-40 /HPF (0-4) Urine Squamous Epithelial Cells Few /LPF Urine Bacteria Many /HPF (0-FEW) Glucose (Fingerstick) 125 mg/dL (70-99) Test 11/03/16 00:53 11/03/16 05:16 11/03/16 05:20 11/03/16 07:04 Glucose (Fingerstick) 200 mg/dL (70-99) 196 mg/dL (70-99) White Blood Count 10.5 x10^3/uL (4.0-11.0) Red Blood Count 5.18 x10^6/uL (3.50-5.40) Hemoglobin 12.5 g/dL (12.0-15.5) Hematocrit 38.3 % (36.0-47.0) Mean Corpuscular Volume 74 fL (79-100) Mean Corpuscular Hemoglobin 24 pg (25-35) Mean Corpuscular Hemoglobin Concent 33 g/dL (31-37) Red Cell Distribution Width 16.2 % (11.5-14.5) Platelet Count 288 x10^3/uL (140-400) Neutrophils (%) (Auto) 72 % (31-73) Lymphocytes (%) (Auto) 19 % (24-48) Monocytes (%) (Auto) 5 % (0-9) Eosinophils (%) (Auto) 2 % (0-3) Basophils (%) (Auto) 1 % (0-3) Neutrophils # (Auto) 7.5 x10^3uL (1.8-7.7) Lymphocytes # (Auto) 2.0 x10^3/uL (1.0-4.8) Monocytes # (Auto) 0.6 x10^3/uL (0.0-1.1) Eosinophils # (Auto) 0.2 x10^3/uL (0.0-0.7) Basophils # (Auto) 0.1 x10^3/uL (0.0-0.2) Troponin I Quantitative < 0.017 ng/mL (0.000-0.055) Iron Level 27 ug/dL (50-170) Total Iron Binding Capacity 379 ug/dL (250-450) Iron Saturation 7 % (15-34) Test 11/03/16 09:41 11/03/16 11:35 11/03/16 11:47 Glucose (Fingerstick) 147 mg/dL (70-99) 123 mg/dL (70-99) Stool Occult Blood Negative (NEG) Laboratory Tests Test 11/02/16 20:48 11/02/16 23:30 11/03/16 00:53 11/03/16 05:16 Glucose (Fingerstick) 125 mg/dL (70-99) 200 mg/dL (70-99) 196 mg/dL (70-99) Troponin I Quantitative < 0.017 ng/mL (0.000-0.055) Test 11/03/16 05:20 11/03/16 07:04 11/03/16 09:41 11/03/16 11:35 White Blood Count 10.5 x10^3/uL (4.0-11.0) Red Blood Count 5.18 x10^6/uL (3.50-5.40) Hemoglobin 12.5 g/dL (12.0-15.5) Hematocrit 38.3 % (36.0-47.0) Mean Corpuscular Volume 74 fL (79-100) Mean Corpuscular Hemoglobin 24 pg (25-35) Mean Corpuscular Hemoglobin Concent 33 g/dL (31-37) Red Cell Distribution Width 16.2 % (11.5-14.5) Platelet Count 288 x10^3/uL (140-400) Neutrophils (%) (Auto) 72 % (31-73) Lymphocytes (%) (Auto) 19 % (24-48) Monocytes (%) (Auto) 5 % (0-9) Eosinophils (%) (Auto) 2 % (0-3) Basophils (%) (Auto) 1 % (0-3) Neutrophils # (Auto) 7.5 x10^3uL (1.8-7.7) Lymphocytes # (Auto) 2.0 x10^3/uL (1.0-4.8) Monocytes # (Auto) 0.6 x10^3/uL (0.0-1.1) Eosinophils # (Auto) 0.2 x10^3/uL (0.0-0.7) Basophils # (Auto) 0.1 x10^3/uL (0.0-0.2) Troponin I Quantitative < 0.017 ng/mL (0.000-0.055) Iron Level 27 ug/dL (50-170) Total Iron Binding Capacity 379 ug/dL (250-450) Iron Saturation 7 % (15-34) Glucose (Fingerstick) 147 mg/dL (70-99) Stool Occult Blood Negative (NEG) Test 11/03/16 11:47 Glucose (Fingerstick) 123 mg/dL (70-99) Assessment/Plan Assessment/Plan His patient comes in with an atypical chest pain but she has some risk factors for coronary artery disease including a strong family history. I would like to get a stress MPI and then depending on the results will then make further recommendations. Thank you very much for asking me to participate in the care of this patient. GRANT ROCHE MD Nov 03, 2016 16:30
[2016-11-03] MEDS: INSULIN ASPART 300 UNITS/3 ML INSULN.PEN SQ SCH (17:00)
[2016-11-03] MEDS ORDERED: diphenhydrAMINE HCL 25 MG CAPSULE PO PRN (18:30)
[2016-11-03 19:00] VITALS: BP 123/80
[2016-11-03] MEDS ORDERED: ATORVASTATIN CALCIUM 40 MG TABLET. PO SCH (21:00)
[2016-11-03] MEDS: clonazePAM 1 MG TABLET PO SCH (21:01)
[2016-11-03 23:00] VITALS: BP 108/45
[2016-11-04 03:00] VITALS: BP 118/81
[2016-11-04 07:00] VITALS: BP 112/80
[2016-11-04] MEDS: INSULIN ASPART 300 UNITS/3 ML INSULN.PEN SQ SCH ×2 (08:00→12:00)
[2016-11-04 11:00] VITALS: BP 104/40
--- NOTE | 2016-11-04 11:40 | PDOC ---
PROGRESS NOTES Chief Complaint Chief Complaint LATE ENTRY, pt seen 11.03, I had planned to DC after MPI stress] chest pain, angina, pain from chest to right neck to right ear Hx GERD with chest pain, cont PPI obesity, BMI 39 Dm2, tobaccoism microcytosis without anemia, check for iron def. History of Present Illness History of Present Illness await CV clearance, MPI results pending Vitals Vitals Vital Signs Date Time Temp Pulse Resp B/P (MAP) Pulse Ox O2 Delivery O2 Flow Rate FiO2 11/04/16 07:00 97.7 71 20 112/80 (91) 97 Room Air 97.7 Physical Exam General: Alert, Oriented X3, Cooperative Heart: Regular rate, Normal S1, Normal S2, Other (tachycardic rate 100, no chest wall tenderness) Abdomen: Normal bowel sounds, Soft Extremities: No edema Skin: No breakdown, No significant lesion Labs LABS Laboratory Tests Test 11/03/16 11:47 11/03/16 16:30 11/03/16 21:32 11/04/16 11:08 Glucose (Fingerstick) 123 mg/dL (70-99) 99 mg/dL (70-99) 130 mg/dL (70-99) 181 mg/dL (70-99) Comment Review of Relevant I have reviewed the following items [place] (where applicable) has been applied. Labs Laboratory Tests Test 11/02/16 12:54 11/02/16 13:35 11/02/16 20:48 11/02/16 23:30 White Blood Count 8.5 x10^3/uL (4.0-11.0) Red Blood Count 5.40 x10^6/uL (3.50-5.40) Hemoglobin 13.0 g/dL (12.0-15.5) Hematocrit 39.5 % (36.0-47.0) Mean Corpuscular Volume 73 fL (79-100) Mean Corpuscular Hemoglobin 24 pg (25-35) Mean Corpuscular Hemoglobin Concent 33 g/dL (31-37) Red Cell Distribution Width 15.8 % (11.5-14.5) Platelet Count 299 x10^3/uL (140-400) Neutrophils (%) (Auto) 68 % (31-73) Lymphocytes (%) (Auto) 20 % (24-48) Monocytes (%) (Auto) 6 % (0-9) Eosinophils (%) (Auto) 4 % (0-3) Basophils (%) (Auto) 2 % (0-3) Neutrophils # (Auto) 5.8 x10^3uL (1.8-7.7) Lymphocytes # (Auto) 1.7 x10^3/uL (1.0-4.8) Monocytes # (Auto) 0.5 x10^3/uL (0.0-1.1) Eosinophils # (Auto) 0.4 x10^3/uL (0.0-0.7) Basophils # (Auto) 0.1 x10^3/uL (0.0-0.2) D-Dimer (Padmini) 0.53 ug/mlFEU (0.00-0.50) Sodium Level 140 mmol/L (136-145) Potassium Level 3.8 mmol/L (3.5-5.1) Chloride Level 102 mmol/L (98-107) Carbon Dioxide Level 30 mmol/L (21-32) Anion Gap 8 (6-14) Blood Urea Nitrogen 14 mg/dL (7-20) Creatinine 0.9 mg/dL (0.6-1.0) Estimated GFR (Cockcroft-Gault) 63.2 BUN/Creatinine Ratio 16 (6-20) Glucose Level 134 mg/dL (70-99) Calcium Level 9.6 mg/dL (8.5-10.1) Total Bilirubin 0.3 mg/dL (0.2-1.0) Aspartate Amino Transf (AST/SGOT) 17 U/L (15-37) Alanine Aminotransferase (ALT/SGPT) 25 U/L (14-59) Alkaline Phosphatase 80 U/L (46-116) Troponin I Quantitative < 0.017 ng/mL (0.000-0.055) < 0.017 ng/mL (0.000-0.055) Total Protein 7.9 g/dL (6.4-8.2) Albumin 3.6 g/dL (3.4-5.0) Albumin/Globulin Ratio 0.8 (1.0-1.7) Lipase 203 U/L (73-393) Urine Collection Type Unknown Urine Color Yellow Urine Clarity Clear Urine pH 7.0 Urine Specific [place] <=1.005 Urine Protein Negative mg/dL (NEG-TRACE) Urine Glucose (UA) Negative mg/dL (NEG) Urine Ketones (Stick) Negative mg/dL (NEG) Urine Blood Negative (NEG) Urine Nitrite Positive (NEG) Urine Bilirubin Negative (NEG) Urine Urobilinogen Dipstick 0.2 mg/dL (0.2 mg/dL) Urine Leukocyte Esterase Small (NEG) Urine RBC 0 /HPF (0-2) Urine WBC 20-40 /HPF (0-4) Urine Squamous Epithelial Cells Few /LPF Urine Bacteria Many /HPF (0-FEW) Glucose (Fingerstick) 125 mg/dL (70-99) Test 11/03/16 00:53 11/03/16 05:16 11/03/16 05:20 11/03/16 07:04 Glucose (Fingerstick) 200 mg/dL (70-99) 196 mg/dL (70-99) White Blood Count 10.5 x10^3/uL (4.0-11.0) Red Blood Count 5.18 x10^6/uL (3.50-5.40) Hemoglobin 12.5 g/dL (12.0-15.5) Hematocrit 38.3 % (36.0-47.0) Mean Corpuscular Volume 74 fL (79-100) Mean Corpuscular Hemoglobin 24 pg (25-35) Mean Corpuscular Hemoglobin Concent 33 g/dL (31-37) Red Cell Distribution Width 16.2 % (11.5-14.5) Platelet Count 288 x10^3/uL (140-400) Neutrophils (%) (Auto) 72 % (31-73) Lymphocytes (%) (Auto) 19 % (24-48) Monocytes (%) (Auto) 5 % (0-9) Eosinophils (%) (Auto) 2 % (0-3) Basophils (%) (Auto) 1 % (0-3) Neutrophils # (Auto) 7.5 x10^3uL (1.8-7.7) Lymphocytes # (Auto) 2.0 x10^3/uL (1.0-4.8) Monocytes # (Auto) 0.6 x10^3/uL (0.0-1.1) Eosinophils # (Auto) 0.2 x10^3/uL (0.0-0.7) Basophils # (Auto) 0.1 x10^3/uL (0.0-0.2) Troponin I Quantitative < 0.017 ng/mL (0.000-0.055) Iron Level 27 ug/dL (50-170) Total Iron Binding Capacity 379 ug/dL (250-450) Iron Saturation 7 % (15-34) Test 11/03/16 09:41 11/03/16 11:35 11/03/16 11:47 11/03/16 16:30 Glucose (Fingerstick) 147 mg/dL (70-99) 123 mg/dL (70-99) 99 mg/dL (70-99) Stool Occult Blood Negative (NEG) Test 11/03/16 21:32 11/04/16 11:08 Glucose (Fingerstick) 130 mg/dL (70-99) 181 mg/dL (70-99) Laboratory Tests Test 11/03/16 11:47 11/03/16 16:30 11/03/16 21:32 11/04/16 11:08 Glucose (Fingerstick) 123 mg/dL (70-99) 99 mg/dL (70-99) 130 mg/dL (70-99) 181 mg/dL (70-99) Microbiology 11/02/16 Urine Culture - Preliminary, Resulted 11/02/16 Urine Culture Result 1 (TOYIN) - Preliminary, Resulted Medications Current Medications Fentanyl Citrate (Fentanyl 2ml Vial) 50 mcg 1X ONCE IV ; Start 11/02/16 at 13: 15; Stop 11/02/16 at 13:16; Status DC Ondansetron HCl (Zofran) 4 mg 1X ONCE IV ; Start 11/02/16 at 13:15; Stop at 13:16; Status DC Iohexol (Omnipaque 300 Mg/ml) 75 ml 1X ONCE IV Last administered on 11/02/16t 18:12; Start 11/02/16 at 18:00; Stop 11/02/16 at 18:01; Status DC Ondansetron HCl (Zofran) 4 mg PRN Q8HRS PRN IV NAUSEA/VOMITING; Start 11/02/16 at 18:00; Stop 11/03/16 at 17:59; Status DC Info (Do NOT chart on this entry -- for MONITORING) 1 each PRN DAILY PRN MC SEE COMMENTS; Start 11/02/16 at 18:00; Stop 11/04/16 at 17:59 Iohexol (Omnipaque 300 Mg/ml) 75 ml STK-MED ONCE .ROUTE ; Start 11/02/16 at 18: 19; Stop 11/02/16 at 18:20; Status DC Methylprednisolone Sodium Succinate (SOLU-Medrol 40MG VIAL) 40 mg 1X ONCE IV Last administered on 11/02/16 20:46; Start 11/02/16 at 20:30; Stop 11/02/16 at 20:31; Status DC Diphenhydramine HCl (Benadryl) 50 mg 1X ONCE IVP Last administered on 20:46; Start 11/02/16 at 20:30; Stop 11/02/16 at 20:31; Status DC Ceftriaxone Sodium 1 gm/ Sodium Chloride 50 ml @ 100 mls/hr Q24H IV Last administered on 11/03/16 21:01; Start 11/02/16 at 21:00 Atenolol (Tenormin) 50 mg DAILY PO Last administered on 11/03/16 11:54; Start 11/03/16 at 09:00 Clonazepam (KlonoPIN) 1 mg QHS PO Last administered on 11/03/16 21:01; Start 11/02/16 at 22:00 Metformin HCl (Glucophage) 500 mg DAILY08 PO ; Start 11/05/16 at 08:00; Stop at 08:00; Status DC Trazodone HCl (Desyrel) 50 mg PRN QHS PRN PO INSOMNIA; Start 11/02/16 at 21:45 Duloxetine HCl (Cymbalta) 60 mg DAILY PO Last administered on 11/03/16 11:51; Start 11/03/16 at 09:00 Pantoprazole Sodium (Protonix) 40 mg DAILYAC PO Last administered on 11/03/16 11:51; Start 11/03/16 at 07:30 Atorvastatin Calcium (Lipitor) 80 mg HS PO Last administered on 11/03/16 21:01 ; Start 11/03/16 at 21:00 Hydrochlorothiazide (Hydrodiuril) 50 mg DAILY PO ; Start 11/03/16 at 09:00; Stop 11/03/16 at 12:20; Status DC Metformin HCl (Glucophage) 500 mg BIDWMEALS PO ; Start 11/05/16 at 08:00 Regadenoson (Lexiscan) 0.4 mg 1X ONCE IV Last administered on 11/03/16 11:09 ; Start 11/03/16 at 10:45; Stop 11/03/16 at 10:46; Status DC Regadenoson (Lexiscan) 0.4 mg STK-MED ONCE IV ; Start 11/03/16 at 10:48; Stop at 10:49; Status DC Losartan Potassium (Cozaar) 50 mg DAILY PO Last administered on 11/03/16 13:32 ; Start 11/03/16 at 13:00 Hydrochlorothiazide (Microzide) 12.5 mg DAILY PO Last administered on 13:33; Start 11/03/16 at 13:00 Insulin Aspart (NovoLOG) 0-5 UNITS TIDWMEALS SQ ; Start 11/03/16 at 17:00 Dextrose (Dextrose 50%-Water Syringe) 12.5 gm PRN Q15MIN PRN IV SEE COMMENTS; Start 11/03/16 at 12:30 Diphenhydramine HCl (Benadryl) 50 mg PRN Q6HRS PRN PO ITCHING Last administered on 11/03/16 18:54; Start 11/03/16 at 18:30 Active Scripts Active Reported [Meclazine] 25 Mg PO PRN Trazodone Hcl 50 Mg Tablet 1 Tab PO QHS PRN Metformin Hcl 500 Mg Tablet 500 Mg PO BID Crestor (Rosuvastatin Calcium) 20 Mg Tablet 1 Tab PO DAILY Cymbalta (Duloxetine Hcl) 60 Mg Capsule.dr 1 Cap PO DAILY Omeprazole 20 Mg Capsule.dr 1 Cap PO DAILY Atenolol 50 Mg Tablet 1 Tab PO DAILY Clonazepam 1 Mg Tablet 1 Tab PO QHS [Hyzaar] 50/12.5 1 Tab PO DAILY Vitals/I & O Vital Sign - Last 24 Hours 11/03/16 11/03/16 11/03/16 11/03/16 11:54 13:32 15:00 19:00 Temp 97.9 97.7 97.9 97.7 Pulse 113 113 92 66 Resp 16 16 B/P (MAP) 156/91 156/91 133/58 (83) 123/80 (94) Pulse Ox 95 96 O2 Delivery Room Air Room Air 11/03/16 11/03/16 11/04/16 11/04/16 20:29 23:00 03:00 07:00 Temp 98.0 97.5 97.7 98.0 97.5 97.7 Pulse 59 77 71 Resp 18 18 20 B/P (MAP) 108/45 (66) 118/81 (93) 112/80 (91) Pulse Ox 95 95 97 O2 Delivery Room Air Room Air Room Air Room Air NICHELLE BRADFORD MD Nov 04, 2016 11:40
[2016-11-04] MEDS: PANTOPRAZOLE 40 MG TABLET.DR. PO SCH (12:23)
[2016-11-04] MEDS: DULoxetine HCL 30 MG CAPSULE.DR PO SCH (12:23)
[2016-11-04 12:24] VITALS: BP 104/40
[2016-11-04] MEDS: LOSARTAN POTASSIUM 50 MG TABLET. PO SCH (12:24)
[2016-11-04] MEDS: hydroCHLOROthiazide 12.5 MG CAPSULE PO SCH (12:24)
[2016-11-04] MEDS: ATENOLOL 50 MG TABLET. PO SCH (12:24)
--- NOTE | 2016-11-04 12:43 | PDOC ---
PROGRESS NOTES Subjective Subjective No more chest pains. The patient at the second portion of the MPI done today. Objective Objective Vital Signs Date Time Temp Pulse Resp B/P (MAP) Pulse Ox O2 Delivery O2 Flow Rate FiO2 11/04/16 12:24 68 104/40 11/04/16 11:00 97.9 20 96 Room Air 97.9 Intake and Output 11/05/16 07:00 Intake Total 250 ml Balance 250 ml Intake Oral 250 ml # Voids 2 Physical Exam Physical Exam No significant changes in cardiac exam Assessment Assessment The patient's MPI shows a normal systolic function and no apparent reversible ischemia. Stable cardiac-callaway. May go home today. Comment Review of Relevant I have reviewed the following items salomón (where applicable) has been applied. Labs Laboratory Tests Test 11/02/16 12:54 11/02/16 13:35 11/02/16 20:48 11/02/16 23:30 White Blood Count 8.5 x10^3/uL (4.0-11.0) Red Blood Count 5.40 x10^6/uL (3.50-5.40) Hemoglobin 13.0 g/dL (12.0-15.5) Hematocrit 39.5 % (36.0-47.0) Mean Corpuscular Volume 73 fL (79-100) Mean Corpuscular Hemoglobin 24 pg (25-35) Mean Corpuscular Hemoglobin Concent 33 g/dL (31-37) Red Cell Distribution Width 15.8 % (11.5-14.5) Platelet Count 299 x10^3/uL (140-400) Neutrophils (%) (Auto) 68 % (31-73) Lymphocytes (%) (Auto) 20 % (24-48) Monocytes (%) (Auto) 6 % (0-9) Eosinophils (%) (Auto) 4 % (0-3) Basophils (%) (Auto) 2 % (0-3) Neutrophils # (Auto) 5.8 x10^3uL (1.8-7.7) Lymphocytes # (Auto) 1.7 x10^3/uL (1.0-4.8) Monocytes # (Auto) 0.5 x10^3/uL (0.0-1.1) Eosinophils # (Auto) 0.4 x10^3/uL (0.0-0.7) Basophils # (Auto) 0.1 x10^3/uL (0.0-0.2) D-Dimer (Padmini) 0.53 ug/mlFEU (0.00-0.50) Sodium Level 140 mmol/L (136-145) Potassium Level 3.8 mmol/L (3.5-5.1) Chloride Level 102 mmol/L (98-107) Carbon Dioxide Level 30 mmol/L (21-32) Anion Gap 8 (6-14) Blood Urea Nitrogen 14 mg/dL (7-20) Creatinine 0.9 mg/dL (0.6-1.0) Estimated GFR (Cockcroft-Gault) 63.2 BUN/Creatinine Ratio 16 (6-20) Glucose Level 134 mg/dL (70-99) Calcium Level 9.6 mg/dL (8.5-10.1) Total Bilirubin 0.3 mg/dL (0.2-1.0) Aspartate Amino Transf (AST/SGOT) 17 U/L (15-37) Alanine Aminotransferase (ALT/SGPT) 25 U/L (14-59) Alkaline Phosphatase 80 U/L (46-116) Troponin I Quantitative < 0.017 ng/mL (0.000-0.055) < 0.017 ng/mL (0.000-0.055) Total Protein 7.9 g/dL (6.4-8.2) Albumin 3.6 g/dL (3.4-5.0) Albumin/Globulin Ratio 0.8 (1.0-1.7) Lipase 203 U/L (73-393) Urine Collection Type Unknown Urine Color Yellow Urine Clarity Clear Urine pH 7.0 Urine Specific Fate <=1.005 Urine Protein Negative mg/dL (NEG-TRACE) Urine Glucose (UA) Negative mg/dL (NEG) Urine Ketones (Stick) Negative mg/dL (NEG) Urine Blood Negative (NEG) Urine Nitrite Positive (NEG) Urine Bilirubin Negative (NEG) Urine Urobilinogen Dipstick 0.2 mg/dL (0.2 mg/dL) Urine Leukocyte Esterase Small (NEG) Urine RBC 0 /HPF (0-2) Urine WBC 20-40 /HPF (0-4) Urine Squamous Epithelial Cells Few /LPF Urine Bacteria Many /HPF (0-FEW) Glucose (Fingerstick) 125 mg/dL (70-99) Test 9/22/17 00:53 11/03/16 05:16 11/03/16 05:20 11/03/16 07:04 Glucose (Fingerstick) 200 mg/dL (70-99) 196 mg/dL (70-99) White Blood Count 10.5 x10^3/uL (4.0-11.0) Red Blood Count 5.18 x10^6/uL (3.50-5.40) Hemoglobin 12.5 g/dL (12.0-15.5) Hematocrit 38.3 % (36.0-47.0) Mean Corpuscular Volume 74 fL (79-100) Mean Corpuscular Hemoglobin 24 pg (25-35) Mean Corpuscular Hemoglobin Concent 33 g/dL (31-37) Red Cell Distribution Width 16.2 % (11.5-14.5) Platelet Count 288 x10^3/uL (140-400) Neutrophils (%) (Auto) 72 % (31-73) Lymphocytes (%) (Auto) 19 % (24-48) Monocytes (%) (Auto) 5 % (0-9) Eosinophils (%) (Auto) 2 % (0-3) Basophils (%) (Auto) 1 % (0-3) Neutrophils # (Auto) 7.5 x10^3uL (1.8-7.7) Lymphocytes # (Auto) 2.0 x10^3/uL (1.0-4.8) Monocytes # (Auto) 0.6 x10^3/uL (0.0-1.1) Eosinophils # (Auto) 0.2 x10^3/uL (0.0-0.7) Basophils # (Auto) 0.1 x10^3/uL (0.0-0.2) Troponin I Quantitative < 0.017 ng/mL (0.000-0.055) Iron Level 27 ug/dL (50-170) Total Iron Binding Capacity 379 ug/dL (250-450) Iron Saturation 7 % (15-34) Test 11/03/16 09:41 11/03/16 11:35 11/03/16 11:47 11/03/16 16:30 Glucose (Fingerstick) 147 mg/dL (70-99) 123 mg/dL (70-99) 99 mg/dL (70-99) Stool Occult Blood Negative (NEG) Test 11/03/16 21:32 11/04/16 11:08 Glucose (Fingerstick) 130 mg/dL (70-99) 181 mg/dL (70-99) Laboratory Tests Test 11/03/16 16:30 11/03/16 21:32 11/04/16 11:08 Glucose (Fingerstick) 99 mg/dL (70-99) 130 mg/dL (70-99) 181 mg/dL (70-99) Microbiology 11/02/16 Urine Culture - Preliminary, Resulted 11/02/16 Urine Culture Result 1 (TOYIN) - Preliminary, Resulted Medications Current Medications Fentanyl Citrate (Fentanyl 2ml Vial) 50 mcg 1X ONCE IV ; Start 11/02/16 at 13: 15; Stop 11/02/16 at 13:16; Status DC Ondansetron HCl (Zofran) 4 mg 1X ONCE IV ; Start 11/02/16 at 13:15; Stop at 13:16; Status DC Iohexol (Omnipaque 300 Mg/ml) 75 ml 1X ONCE IV Last administered on 11/02/16 18:12; Start 11/02/16 at 18:00; Stop 11/02/16 at 18:01; Status DC Ondansetron HCl (Zofran) 4 mg PRN Q8HRS PRN IV NAUSEA/VOMITING; Start 11/02/16 at 18:00; Stop 11/03/16 at 17:59; Status DC Info (Do NOT chart on this entry -- for MONITORING) 1 each PRN DAILY PRN MC SEE COMMENTS; Start 11/02/16 at 18:00; Stop 11/04/16 at 17:59 Iohexol (Omnipaque 300 Mg/ml) 75 ml STK-MED ONCE .ROUTE ; Start 11/02/16 at 18: 19; Stop 11/02/16 at 18:20; Status DC Methylprednisolone Sodium Succinate (SOLU-Medrol 40MG VIAL) 40 mg 1X ONCE IV Last administered on 11/02/16 20:46; Start 11/02/16 at 20:30; Stop 11/02/16 at 20:31; Status DC Diphenhydramine HCl (Benadryl) 50 mg 1X ONCE IVP Last administered on 20:46; Start 11/02/16 at 20:30; Stop 11/02/16 at 20:31; Status DC Ceftriaxone Sodium 1 gm/ Sodium Chloride 50 ml @ 100 mls/hr Q24H IV Last administered on 11/03/16 21:01; Start 11/02/16 at 21:00 Atenolol (Tenormin) 50 mg DAILY PO Last administered on 11/04/16 12:24; Start 11/03/16 at 09:00 Clonazepam (KlonoPIN) 1 mg QHS PO Last administered on 11/03/16 21:01; Start 11/02/16 at 22:00 Metformin HCl (Glucophage) 500 mg DAILY08 PO ; Start 11/05/16 at 08:00; Stop at 08:00; Status DC Trazodone HCl (Desyrel) 50 mg PRN QHS PRN PO INSOMNIA; Start 11/02/16 at 21:45 Duloxetine HCl (Cymbalta) 60 mg DAILY PO Last administered on 11/04/16 12:23; Start 11/03/16 at 09:00 Pantoprazole Sodium (Protonix) 40 mg DAILYAC PO Last administered on 11/04/16 12:23; Start 11/03/16 at 07:30 Atorvastatin Calcium (Lipitor) 80 mg HS PO Last administered on 11/03/16 21:01 ; Start 11/03/16 at 21:00 Hydrochlorothiazide (Hydrodiuril) 50 mg DAILY PO ; Start 11/03/16 at 09:00; Stop 11/03/16 at 12:20; Status DC Metformin HCl (Glucophage) 500 mg BIDWMEALS PO ; Start 11/05/16 at 08:00 Regadenoson (Lexiscan) 0.4 mg 1X ONCE IV Last administered on 11/03/16 11:09 ; Start 11/03/16 at 10:45; Stop 11/03/16 at 10:46; Status DC Regadenoson (Lexiscan) 0.4 mg STK-MED ONCE IV ; Start 11/03/16 at 10:48; Stop at 10:49; Status DC Losartan Potassium (Cozaar) 50 mg DAILY PO Last administered on 11/04/16 12:24 ; Start 11/03/16 at 13:00 Hydrochlorothiazide (Microzide) 12.5 mg DAILY PO Last administered on 12:24; Start 11/03/16 at 13:00 Insulin Aspart (NovoLOG) 0-5 UNITS TIDWMEALS SQ ; Start 11/03/16 at 17:00 Dextrose (Dextrose 50%-Water Syringe) 12.5 gm PRN Q15MIN PRN IV SEE COMMENTS; Start 11/03/16 at 12:30 Diphenhydramine HCl (Benadryl) 50 mg PRN Q6HRS PRN PO ITCHING Last administered on 11/03/16 18:54; Start 11/03/16 at 18:30 Active Scripts Active Reported [Meclazine] 25 Mg PO PRN Trazodone Hcl 50 Mg Tablet 1 Tab PO QHS PRN Metformin Hcl 500 Mg Tablet 500 Mg PO BID Crestor (Rosuvastatin Calcium) 20 Mg Tablet 1 Tab PO DAILY Cymbalta (Duloxetine Hcl) 60 Mg Capsule.dr 1 Cap PO DAILY Omeprazole 20 Mg Capsule.dr 1 Cap PO DAILY Atenolol 50 Mg Tablet 1 Tab PO DAILY Clonazepam 1 Mg Tablet 1 Tab PO QHS [Hyzaar] 50/12.5 1 Tab PO DAILY Vitals/I & O Vital Sign - Last 24 Hours 11/03/16 11/03/16 11/03/16 11/03/16 13:32 15:00 19:00 20:29 Temp 97.9 97.7 97.9 97.7 Pulse 113 92 66 Resp 16 16 B/P (MAP) 156/91 133/58 (83) 123/80 (94) Pulse Ox 95 96 O2 Delivery Room Air Room Air Room Air 11/03/16 11/04/16 11/04/16 11/04/16 23:00 03:00 07:00 08:00 Temp 98.0 97.5 97.7 98.0 97.5 97.7 Pulse 59 77 71 Resp 18 18 20 B/P (MAP) 108/45 (66) 118/81 (93) 112/80 (91) Pulse Ox 95 95 97 O2 Delivery Room Air Room Air Room Air Room Air 11/04/16 11/04/16 11/04/16 11:00 12:24 12:24 Temp 97.9 97.9 Pulse 68 68 68 Resp 20 B/P (MAP) 104/40 (61) 104/40 104/40 Pulse Ox 96 O2 Delivery Room Air Intake and Output 11/04/16 11/04/16 11/05/16 15:00 23:00 07:00 Intake Total 250 ml Balance 250 ml GRANT ROCHE MD Nov 04, 2016 12:43
[2016-11-05] MEDS ORDERED: metFORMIN 500 MG TABLET PO SCH ×2 (08:00)
--- NOTE | 2016-11-06 18:20 | RAD ---
APPROVED REPORT Test Type: Pharmacological Stress Nurse/Tech: Bea Martínez R.N. Test Indications: c/p Cardiac History: htn,DM Medications: See Electronic Medical Record Medical History: See Electronic Medical Record Resting ECG: SR Resting Heart Rate: 99 bpm Resting Blood Pressure: 160/87mmHg Pretest Chest Pain: No chest pain Nurse/Tech Notes S1S2, lungs CTA Consent: The procedure was explained to the patient in lay terms. Informed consent was witnessed. Benito eout was entered into [employer]. History and Stress Test performed by RT Ayanna (R) (N) Pharm. Details Pharmacologic stress testing was performed using 0.4mg per 5ml of regadenoson given intravenously ove r 7-10 seconds. Stress Symptoms slight dyspnea and flushed hot feeling, h/ a at the end. HR remained in the high 130's post recovery. notified Dr. Gonzales and Premsingh of b/p and HR w/ stress test. POST EXERCISE Reason for Termination: Infusion complete Max HR: 163 bpm Max Blood Pressure: 200/93mmHg Blood Pressure response to exercise: Abnormal blood pressure response during stress. Heart Rate response to exercise: wnl Chest Pain: No. Arrhythmia: No. ST Change: Yes. depression noted in leads II, V2-V6 Imaging Protocol IMAGE PROTOCOL: Stress Tc-99m/rest Tc-99m 2 days Rest: Stress: Viability: Radiopharm.Tc99m [id number] Sestamibi Dose33.4mCi 34mCi Duration 12min. 12min. Img Date 11/04/2016 11/03/2016 Inj-Img [id number]. 60min. Rest Admin Site:IV - Right AntecubitalAdministrator:MARIA Lind Stress Admin Site: IV - Right AntecubitalAdministrator: RT Ayanna (R)(N) STRESS DATA End Diast. Vol.32.0mlAv. Heart Lidm256.0bpm End Syst. Vol.4.5mlCO Index BSA3.0L/min Myocardial Mass74.0gEject. Aswhzqbn11.5% Stress Rates Pk. Fill Rate6.63EDV/secLVtime Pk. Fill 131.75msec Pk. Empty Rate7.39ESV/secLVtime Pk. Ykpeh094.94msec 02/14 Pk. Fill1.44EDV/sec Stress Scores Regional WT0.00Summed WT0.00 Regional WM0.00Summed WM6.50 LV Perf. Quant 17 Seg. SSS0.00 17 Seg. SRS0.00 17 Seg. SDS0.00 Stress Defect Extent (% LAD)0.00Rest Defect Extent (% LAD)0.00Rev. Defect Extent (% LAD)0.00 Stress Defect Extent (% LCX) 0.00Rest Defect Extent (% LCX)0.00Rev. Defect Extent (% LCX)0.00 Stress Defect Extent (% RCA)0.00Rest Defect Extent (% RCA)0.00Rev. Defect Extent (% RCA)0.00 Stress Defect Extent (% DAVONTE)0.00Rest Defect Extent (% DAVONTE)0.00Rev. Defect Extent (% DAVONTE)0.00 Conclusion 1. Tachycardia response to pharmacological stress. There was a [address] segment depression 2. .No perfusion defects seen to suggest myocardial ischemia or scar. 3. Normal wall motion and wall thickening with an ejection fraction of 80%. 4. Scan indicates low risk for future cardiac events.
== END 2016-11-04 13:00 | disposition home or self-care (01) | DRG 311 ==
LOC: ER 12:18 → 5 NORTH 18:00 → OBSVTOIN 11-03 09:46
PROVIDERS: ADMIT Internal Medicine; ATTEND Internal Medicine
DX: I20.9 Angina pectoris, unspecified (principal); I10 Essential (primary) hypertension; E11.9 Type 2 diabetes mellitus without complications; E66.9 Obesity, unspecified; F17.200 Nicotine dependence, unspecified, uncomplicated; K21.9 Gastro-esophageal reflux disease without esophagitis; M79.7 Fibromyalgia; Z68.39 Body mass index [BMI] 39.0-39.9, adult; Z90.710 Acquired absence of both cervix and uterus; Z88.2 Allergy status to sulfonamides; Z91.041 Radiographic dye allergy status; Z82.49 Family history of ischemic heart disease and other diseases of the circulatory system; Z79.4 Long term (current) use of insulin
CPT/HCPCS: 36415; 71275; 76705; 78452; 80053; 81001; 82274; 82962; 83540; 83550; 83690; 84484; 85025; 85379; 87086; 87186; 93005; 93017; 96374; 96375; 96376; A9500; G0378; G0379; J0696; J1200; J1815; J2785; J2920; Q0163; Q9967; 99285-25

== ENCOUNTER 2017-06-27 22:57 | Emergency (ER) | payer BC | END 2017-06-28 01:25 | disposition home or self-care (01) | LOC: ER 06-28 01:25 | DX: M79.605 Pain in left leg (principal); E11.9 Type 2 diabetes mellitus without complications; I10 Essential (primary) hypertension; F17.200 Nicotine dependence, unspecified, uncomplicated; Z88.2 Allergy status to sulfonamides; Z91.041 Radiographic dye allergy status | CPT/HCPCS: 73562; 93971; 99284-25 ==